=== PATIENT | male | born 1985 | race Caucasian/White ===

== ENCOUNTER 2023-04-18 12:40 | Emergency (ER) | payer OTHER ==
--- NOTE | 2023-04-18 12:51 | ED ---
General Adult HPI - General Chief complaint: Chest Pain Stated complaint: Chest Pain Time Seen by Provider: 04/18/23 12:43 Source: patient, EMS Mode of arrival: EMS Limitations: no limitations - History of Present Illness Initial comments: Dictation was produced using [employer] dictation software. please excuse any grammatical, word or spelling errors. Chief Complaint: 37-year-old male past medical history of methamphetamine abuse and psychiatric illness presents to the ER for chest pain History of Present Illness: Patient's 37-year-old male he is currently a resident at [facility] detox facility. He is detoxing from methamph etamines. Today he had episode where he had some dull pressure in his substernal chest. He states that he's had it before and when we would water. Today he had it and it didn't really go away. EMS was called. His symptoms resolved en route to the ER. He is given an aspirin. Patient asymptomatic bedside. He states that the pain did radiate to his right jaw. Did not quit on the extremity. Patient has no cardiac history. No associated nausea or diaphoresis. He does report a family history of cardiac disease. The ROS documented in this emergency department record has been reviewed and confirmed by me. Those systems with pertinent positive or negative responses have been documented in the HPI. All other systems are other negative and/or noncontributory. - Related Data Home Medications Medication Instructions Recorded Confirmed Acetaminophen Tab [Tylenol] 650 mg PO Q4H PRN 04/18/23 04/18/23 Albuterol Inhaler [Ventolin Hfa 1 - 2 puff INHALATION RT-Q4H PRN 04/18/23 04/18/23 Inhaler] Calcium Phos/D3/Magnesium/Zinc 1 tab PO TID PRN 04/18/23 04/18/23 [Pcdsjua-[id number]-Zcmb-Vitamin D3] Docusate [Colace] 100 mg PO BID PRN 04/18/23 04/18/23 Gabapentin 800 mg PO TID 04/18/23 04/18/23 Ibuprofen [Motrin Ib] 600 mg PO Q6H PRN 04/18/23 04/18/23 Methadone HCl [Methadone Intensol] 50 mg PO DAILY 04/18/23 04/18/23 Multivitamins, Thera [Multivitamin 1 tab PO DAILY 04/18/23 04/18/23 (formulary)] Nicotine 21Mg/24Hr Patch [Habitrol] 1 patch TRANSDERM DIRECTED 04/18/23 04/18/23 OLANZapine 5 mg PO HS 04/18/23 04/18/23 Tamsulosin [Flomax] 0.4 mg PO DAILY 04/18/23 04/18/23 Thiamine [Vitamin B-1] 100 mg PO DAILY 04/18/23 04/18/23 Venlafaxine HCl [Effexor] 225 mg PO DAILY 04/18/23 04/18/23 cloNIDine HCL 0.1 mg PO TID 04/18/23 04/18/23 Allergies Allergy/AdvReac Type Severity Reaction Status Date / Time No Known Allergies Allergy Verified 04/18/23 13:56 Review of Systems ROS Statement: Those systems with pertinent positive or pertinent negative responses have been documented in the HPI. ROS Other: All systems not noted in ROS Statement are negative. Past Medical History Past Medical History: Hypertension History of Any Multi-Drug Resistant Organisms: None Reported Past Surgical History: No Surgical Hx Reported Past Psychological History: Schizophrenia Smoking Status: Current every day smoker Past Alcohol Use History: None Reported Past Drug Use History: Marijuana, Methamphetamine General Exam - General Exam Comments Initial Comments: PHYSICAL EXAM: General Impression: Alert and oriented x3, not in acute distress HEENT: Normocephalic atraumatic, extra-ocular movements intact, pupils equal and reactive to light bilaterally, mucous membranes moist. Cardiovascular: Heart regular rate and rhythm Chest: Able to complete full sentences, no retractions, no tachypnea Abdomen: abdomen soft, non-tender, non-distended, no organomegaly Musculoskeletal: Pulses present and equal in all extremities, no peripheral rasta a Motor: no focal deficits noted Neurological: CN II-XII grossly intact, no focal motor or sensory deficits noted Skin: Intact with no visualized rashes Psych: Normal affect and mood Limitations: no limitations Course Vital Signs 04/18/23 12:44 Temperature 97.5 F L Pulse Rate 69 Respiratory 18 Rate Blood Pressure 105/63 O2 Sat by Pulse 97 Oximetry EKG Findings - EKG Comments: EKG Findings:: My EKG interpretation: Ventricular rate 63, sinus rhythm,. 171, QRS 96, QTC 393. No ME prolongation, no QTC prolongation, no ST or T-wave changes noted. Overall, this EKG is unremarkable Medical Decision Making - Medical Decision Making Was pt. sent in by a medical professional or institution (, AAKASH, PLATE CORRECTOR, urgent care, hospital, or long-term...) When possible be specific @ -No Did you speak to anyone other than the patient for history (EMS, parent, family, police, friend...)? What history was obtained from this source @ -No Did you review nursing and triage notes (agree or disagree)? Why? @ -I reviewed and agree with nursing and triage notes Were old charts reviewed (outside hosp., previous admission, EMS record, old EKG, old radiological studies, urgent care reports/EKG's, long-term records)? Report findings @ -No old charts were reviewed Differential Diagnosis (chest pain, altered mental status, abdominal pain women, abdominal pain men, vaginal bleeding, musculoskeletal, weakness, fever, dysp pacheco, syncope, headache, dizziness, GI bleed, back pain, seizure, CVA, palpatations, mental health)? @ -Differential Chest Pain: Stable Angina, Unstable Angina, STEMI, NSTEMI Aortic Dissection, Pneumothorax, Musculoskeletal, Esophageal Spasm GERD, Cholecystitis, Pancreatitis, Zoster, this is not meant to be an all-inclusive list. EKG interpreted by me (3pts min.). @ -See above X-rays interpreted by me (1pt min.). @ -Chest X-rays nonacute CT interpreted by me (1pt min.). @ -None done U/S interpreted by me (1pt. min.). @ -None done What testing was considered but not performed or refused? (CT, X-rays, U/S, labs)? Why? @ -None What meds were considered but not given or refused? Why? @ -None Did you discuss the management of the patient with other professionals (professionals i.e. , AAKASH, PLATE CORRECTOR, lab, RT, psych nurse, social media project manager, chemist inorganic, teacher, quality officer, top case assembler)? Give summary @ -No Was smoking cessation discussed for >3mins.? @ -No Was critical care preformed (if so, how long)? @ -No Were there social determinants of health that impacted care today? How? (Homelessness, low income, unemployed, alcoholism, drug addiction, transportation, low edu. Level, literacy, decrease access to med. care, [facility], rehab)? @ -No Was there de-escalation of care discussed even if they declined (Discuss DNR or withdrawal of care, Hospice)? DNR status @ -No What co-morbidities impacted this encounter? (DM, HTN, Smoking, COPD, CAD, Cancer, CVA, ARF, Chemo, Hep., AIDS, mental health diagnosis, sleep apnea, morbid obesity)? @ -None Was patient admitted / discharged? Hospital course, mention meds given and route, prescriptions, significant lab abnormalities, going to OR and other pertinent info. @ -37-year-old male with no significant comorbidities presents to the ER for atypical chest pain. Vital signs upon arrival are within acceptable limits. Patient does have some risk factors every he has a low heart score. Laboratory evaluation is unremarkable. EKG is negative. Troponin is negative. Chest x- rays nonacute. Patient reevaluated at bedside without any symptoms. Return precautions discussed. Patient discharged. Undiagnosed new problem with uncertain prognosis? @ -No Drug Therapy requiring intensive monitoring for toxicity (Heparin, Nitro, Insulin, Cardizem)? @ -No Were any procedures done? @ -No Diagnosis/symptom? Acute, or Chronic, or Acute on Chronic? Uncomplicated (without systemic symptoms) or Complicated (systemic symptoms)? @ -Chest pain Side effects of treatment? @ -No Exacerbation, Progression, or Severe Exacerbation? @ -No Poses a threat to life or bodily function? How? (Chest pain, [place], [place], pneumonia, PE, COPD, DKA, ARF, appy, cholecystitis, CVA, Diverticulitis, Homicidal, Suicidal, threat to staff... and all critical care pts) @ -No - Lab Data Result diagrams: 04/18/23 13:09 04/18/23 13:09 Lab Results 04/18/23 04/18/23 04/18/23 Range/Units 13:09 13:09 13:09 WBC 4.6 (3.8-10.6) k/uL RBC 4.44 (4.30-5.90) m/uL Hgb 13.0 (13.0-17.5) gm/dL Hct 38.7 L (39.0-53.0) % MCV 87.0 (80.0-100.0) fL MCH 29.3 (25.0-35.0) pg MCHC 33.7 (31.0-37.0) g/dL RDW 12.5 (11.5-15.5) % Plt Count 235 (150-450) k/uL MPV 7.7 Neutrophils % 41 % Lymphocytes % 46 % Monocytes % 7 % Eosinophils % 4 % Basophils % 1 % Neutrophils # 1.9 (1.3-7.7) k/uL Lymphocytes # 2.1 (1.0-4.8) k/uL Monocytes # 0.3 (0-1.0) k/uL Eosinophils # 0.2 (0-0.7) k/uL Basophils # 0.0 (0-0.2) k/uL PT 10.8 (10.0-12.5) sec INR 1.0 (<1.2) APTT 28.6 (22.0-30.0) sec Sodium 134 L (137-145) mmol/L Potassium 4.8 (3.5-5.1) mmol/L Chloride 100 (98-107) mmol/L Carbon Dioxide 26 (22-30) mmol/L Anion Gap 8 mmol/L BUN 20 (9-20) mg/dL Creatinine 0.79 (0.66-1.25) mg/dL Est GFR (CKD-EPI)AfAm >90 (>60 ml/min/1.73 sqM) Est GFR (CKD-EPI)NonAf >90 (>60 ml/min/1.73 sqM) Glucose 91 (74-99) mg/dL Calcium 8.7 (8.4-10.2) mg/dL Magnesium 2.2 (1.6-2.3) mg/dL Total Bilirubin 0.3 (0.2-1.3) mg/dL AST 30 (17-59) U/L ALT 34 (4-49) U/L Alkaline Phosphatase 109 (38-126) U/L Troponin I (0.000-0.034) ng/mL Total Protein 6.7 (6.3-8.2) g/dL Albumin 3.8 (3.5-5.0) g/dL 04/18/23 Range/Units 13:09 WBC (3.8-10.6) k/uL RBC (4.30-5.90) m/uL Hgb (13.0-17.5) gm/dL Hct (39.0-53.0) % MCV (80.0-100.0) fL MCH (25.0-35.0) pg MCHC (31.0-37.0) g/dL RDW (11.5-15.5) % Plt Count (150-450) k/uL MPV Neutrophils % % Lymphocytes % % Monocytes % % Eosinophils % % Basophils % % Neutrophils # (1.3-7.7) k/uL Lymphocytes # (1.0-4.8) k/uL Monocytes # (0-1.0) k/uL Eosinophils # (0-0.7) k/uL Basophils # (0-0.2) k/uL PT (10.0-12.5) sec INR (<1.2) APTT (22.0-30.0) sec Sodium (137-145) mmol/L Potassium (3.5-5.1) mmol/L Chloride (98-107) mmol/L Carbon Dioxide (22-30) mmol/L Anion Gap mmol/L BUN (9-20) mg/dL Creatinine (0.66-1.25) mg/dL Est GFR (CKD-EPI)AfAm (>60 ml/min/1.73 sqM) Est GFR (CKD-EPI)NonAf (>60 ml/min/1.73 sqM) Glucose (74-99) mg/dL Calcium (8.4-10.2) mg/dL Magnesium (1.6-2.3) mg/dL Total Bilirubin (0.2-1.3) mg/dL AST (17-59) U/L ALT (4-49) U/L Alkaline Phosphatase (38-126) U/L Troponin I <0.012 (0.000-0.034) ng/mL Total Protein (6.3-8.2) g/dL Albumin (3.5-5.0) g/dL Disposition Clinical Impression: Chest pain Disposition: HOME SELF-CARE Condition: Good Instructions (If sedation given, give patient instructions): Chest Pain (ED) Is patient prescribed a controlled substance at d/c from ED?: No Referrals: Nonstaff,Physician [Primary Care Provider] - 1-2 days Time of Disposition: 14:28
[2023-04-18 13:02] VITALS: RESP 18; TEMP 97.5
[2023-04-18 13:42] LABS: Basophils % (A) 1 %; Eosinophils # (A) 0.2 k/uL (0-0.7); Eosinophils % (A) 4 %; HCT 38.7 % (39.0-53.0); Lymphocytes # (A) 2.1 k/uL (1.0-4.8); Lymphocytes % (A) 46 %; MCH 29.3 pg (25.0-35.0); MCHC 33.7 g/dL (31.0-37.0); Mean Platelet Volume 7.7; Monocytes # (A) 0.3 k/uL (0-1.0); Monocytes % (A) 7 %; Neutrophils # (A) 1.9 k/uL (1.3-7.7); Neutrophils % (A) 41 %; Platelet Count 235 k/uL (150-450); RBC 4.44 m/uL (4.30-5.90); RDW 12.5 % (11.5-15.5); WBC 4.6 k/uL (3.8-10.6)
--- NOTE | 2023-04-18 13:44 | XR ---
EXAMINATION TYPE: XR chest 2V DATE OF EXAM: 04/18/2023 COMPARISON: None HISTORY: 37-year-old male with chest pain TECHNIQUE: PA and lateral views FINDINGS: Heart normal size. Aorta and pulmonary vasculature within normal limits. No consolidation or pleural effusion. IMPRESSION: No acute cardiopulmonary process.
[2023-04-18 13:56] LABS: ALT 34 U/L (4-49); AST 30 U/L (17-59); African American GFR (CKD) >90 (>60 ml/min/1.73 sqM); Albumin 3.8 g/dL (3.5-5.0); Alkaline Phosphatase 109 U/L (38-126); Anion Gap 8 mmol/L; Blood Urea Nitrogen 20 mg/dL (9-20); Calcium 8.7 mg/dL (8.4-10.2); Carbon Dioxide 26 mmol/L (22-30); Chloride 100 mmol/L (98-107); Glucose 91 mg/dL (74-99); Magnesium 2.2 mg/dL (1.6-2.3); Non-African American GFR(CKD) >90 (>60 ml/min/1.73 sqM); Potassium 4.8 mmol/L (3.5-5.1); Sodium 134 mmol/L (137-145); Total Bilirubin 0.3 mg/dL (0.2-1.3); Total Protein 6.7 g/dL (6.3-8.2)
[2023-04-18 14:07] LABS: Partial Thromboplastin Time 28.6 sec (22.0-30.0); Prothrombin Time 10.8 sec (10.0-12.5)
[2023-04-18 15:04] VITALS: BP 113/69; PULSE 81
== END 2023-04-18 15:00 | disposition home or self-care (01) ==
LOC: EC 12:40
DX: R07.9 Chest pain, unspecified (principal); I10 Essential (primary) hypertension; F12.90 Cannabis use, unspecified, uncomplicated; F17.200 Nicotine dependence, unspecified, uncomplicated; Z79.899 Other long term (current) drug therapy
CPT/HCPCS: 36415; 71046; 80053; 83735; 84484; 85025; 85610; 85730; 93005; 99285

== ENCOUNTER 2024-10-20 17:25 | Emergency (ER) | payer OTHER ==
--- NOTE | 2024-10-20 19:37 | ED ---
Chest Pain HPI - General Source: patient, RN notes reviewed Mode of arrival: ambulatory Limitations: no limitations <Kyle Chinchilla - Last Filed: 10/20/24 19:34> <Ayse Hernandez - Last Filed: 10/21/24 02:03> - General Chief Complaint: Chest Pain Stated Complaint: Chest pain,L leg pain Time Seen by Provider: 10/20/24 17:42 - History of Present Illness Initial Comments: Quick note: This is a 39-year-old male with history of hypertension and methamphetamine use presenting from [place] for chest pain and pain in the left lower extremity for the past several days. Patient describes chest pain as sharp and intermittent, located mostly in his left axillary region. Denies pain with inspiration, radiating pain, dyspnea, dizziness. Patient also endorses pain in his left leg extending from his hip to knee, described as aching that worsens while walking for the past 2 days. Denies recent trauma, lower extremity edema, color change, lower back pain. (Kyle Chinchilla) Patient is a 39-year-old gentleman, past medical history hypertension, methamphetamine abuse, cocaine abuse, fentanyl and Adderall abuse presenting today for left lower extremity pain and chest pain. Patient has been in [place] rehab facility for fentanyl and Adderall abuse since October 16. Last cocaine use was one month ago. He began noticing intermittent sharp left-sided chest pains,pinpoint, nonradiating. Patient is been taking Tylenol and ibuprofen for pain which does help his pain. States pain improves when he gets up and walks around, or drinks water. No history of CAD. No history of diabetes or hyperlipidemia. Also noted crampy left posterior leg pain over the last several days as well. Denies traumas, falls, swelling or back pain. Does intermittently radiate to the hip. Controlled with Tylenol and ibuprofen. No history of prior DVT PE or malignancy. Is a cigarette smoker. Denies hemoptysis shortness of breath fevers, chills, abdominal pain, nausea, vomiting, diaphoresis dizziness, lightheadedness, numbness or weakness. (Ayse Hernandez) - Related Data Home Medications Medication Instructions Recorded Confirmed Acetaminophen Tab [Tylenol] 650 mg PO Q4H PRN 04/18/23 04/18/23 Albuterol Inhaler [Ventolin Hfa 1 - 2 puff INHALATION RT-Q4H PRN 04/18/23 04/18/23 Inhaler] Calcium Phos/D3/Magnesium/Zinc 1 tab PO TID PRN 04/18/23 04/18/23 [Jstrnrs-Wyw-Bgsv-Vitamin D3] Docusate [Colace] 100 mg PO BID PRN 04/18/23 04/18/23 Gabapentin 800 mg PO TID 04/18/23 04/18/23 Ibuprofen [Motrin Ib] 600 mg PO Q6H PRN 04/18/23 04/18/23 Methadone HCl [Methadone Intensol] 50 mg PO DAILY 04/18/23 04/18/23 Multivitamins, Thera [Multivitamin 1 tab PO DAILY 04/18/23 04/18/23 (formulary)] Nicotine 21Mg/24Hr Patch [Habitrol] 1 patch TRANSDERM DIRECTED 04/18/23 04/18/23 OLANZapine 5 mg PO HS 04/18/23 04/18/23 Tamsulosin [Flomax] 0.4 mg PO DAILY 04/18/23 04/18/23 Thiamine [Vitamin B-1] 100 mg PO DAILY 04/18/23 04/18/23 Venlafaxine HCl [Effexor] 225 mg PO DAILY 04/18/23 04/18/23 cloNIDine HCL 0.1 mg PO TID 04/18/23 04/18/23 Allergies Allergy/AdvReac Type Severity Reaction Status Date / Time No Known Allergies Allergy Verified 10/20/24 17:31 Review of Systems ROS Other: All systems not noted in ROS Statement are negative. <Kyle Chinchilla - Last Filed: 10/20/24 19:34> ROS Other: All systems not noted in ROS Statement are negative. Constitutional: Denies: fever, chills, weakness Respiratory: Denies: cough, dyspnea, hemoptysis Cardiovascular: Reports: chest pain. Denies: dyspnea on exertion, syncope Gastrointestinal: Denies: abdominal pain, nausea, vomiting, diarrhea, melena, hematochezia Musculoskeletal: Reports: arthralgia, myalgia. Denies: back pain, joint swelling Skin: Denies: rash, change in color Neurological: Denies: weakness, numbness, paresthesias <Ayse Hernandez - Last Filed: 10/21/24 02:03> ROS Statement: Those systems with pertinent positive or pertinent negative responses have been documented in the HPI. EKG Findings - EKG Comments: EKG Findings:: Sinus rhythm, rate 63 bpm intervals in acceptable limits, normal axis, no significant ST elevations or depressions, no arrhythmia <Ayse Hernandez - Last Filed: 10/21/24 02:03> Past Medical History Past Medical History: Hypertension History of Any Multi-Drug Resistant Organisms: None Reported Past Surgical History: No Surgical Hx Reported Past Psychological History: Schizophrenia Smoking Status: Current every day smoker Past Alcohol Use History: None Reported Past Drug Use History: Marijuana, Methamphetamine <Kyle Chinchilla - Last Filed: 10/20/24 19:34> General Exam Limitations: no limitations <Kyle Chinchilla - Last Filed: 10/20/24 19:34> <Ayse Hernandez - Last Filed: 10/21/24 02:03> - General Exam Comments Initial Comments: Visual Physical Exam Vital signs reviewed General: Well-appearing, nontoxic, no acute distress. Head: Normocephalic, atraumatic Eyes: PERRLA, EOMI ENT: Airway patent Chest: Nonlabored breathing Skin: No visual rash, normal skin tone Neuro: Alert and oriented 3 Musculoskeletal: No gross abnormalities (AmorKyle) PE: CONSTITUTIONAL: [no apparent distress, well appearing] SKIN: [warm, dry, no jaundice, hives or petechiae] EYES:[ pupils are equally round, extraocular movements intact without nystagmus, clear conjunctiva, non-icteric sclera] HENT: [normocephalic, atraumatic, moist mucus membranes, oropharynx clear without exudates] NECK: , [Full range of motion, normal appearance] PULMONARY: [clear to auscultation without wheezes, rhonchi, or rales, normal excursion, no accessory muscle use and no stridor] CARDIOVASCULAR:[ regular rate, rhythm, normal S1 and S2. No appreciated murmurs, rubs or gallops. Strong radial pulses with intact distal perfusion. No lower extremity edema] GASTROINTESTINAL: [soft, active bowel sounds throughout, non-tender, non- distended, no palpable masses, no rebound or guarding. No hepatosplenomegaly] GENITOURINARY: MUSCULOSKELETAL: [Extremities have no gross deformity, no edema, redness, or swelling. No calf swelling ] NEUROLOGIC: [_a/o x 3, GCS 15, normal mentation and speech. Moves all extremities x 4 without motor or sensory deficit no midline spinal tenderness to palpation] PSYCHIATRIC:[ _normal mood and affect, thought process is clear and linear] (Ayse Hernandez) Course Vital Signs 10/20/24 10/20/24 10/20/24 17:29 20:54 21:03 Temperature 98.2 F Pulse Rate 67 64 68 Respiratory 18 18 16 Rate Blood Pressure 138/95 144/103 148/96 O2 Sat by Pulse 99 99 98 Oximetry 10/21/24 01:05 Temperature 98.7 F Pulse Rate 85 Respiratory 16 Rate Blood Pressure 155/97 O2 Sat by Pulse 100 Oximetry Chest Pain MDM <Kyle Chinchilla - Last Filed: 10/20/24 19:34> - Wells Criteria Clinical Symptoms of DVT: (0) No No Alternative Diagnosis: (3.0) Yes Immobilization of Surgery in Previous 4 Weeks: (0) No Previous DVT/PE: (0) No Hemoptysis: (0) No Malignancy: (0) No - YOSEF Score Age > 65: (0) No 3 or more CAD Risk Factors: (0) No Known CAD with more than 50% Stenosis: (0) No Elevated Cardiac Markers: (0) No ST Deviation Greater than 0.5mm: (0) No <Ayse Hernandez - Last Filed: 10/21/24 02:03> - MDM I completed the quick note portion of this chart signed JOSEPH Torres (Kyle Chinchilla) Was pt. sent in by a medical professional or institution (AAKASH Walsh, PROGRAM STRATEGIST, urgent care, hospital, or shelter...) When possible be specific @ -No Did you speak to anyone other than the patient for history (EMS, parent, family, police, friend...)? What history was obtained from this source @ -No Did you review nursing and triage notes (agree or disagree)? Why? @ -I reviewed nursing and triage notes Were old charts reviewed (outside hosp., previous admission, EMS record, old EKG, old radiological studies, urgent care reports/EKG's, shelter records)? Report findings @ -Medical records reviewed-Reviewed ED visit from 04/18/2023 patient had presented for chest pain at that time as well, he had presented from [place] while detoxing from methamphetamines. EKG from that visit showed sinus rhythm without ST or T wave changes. He was discharged home after a negative troponin and EKG as well as a nonacute chest x-ray D differential Chest Pain: Stable Angina, Unstable Angina, STEMI, NSTEMI Aortic Dissection, pericarditis, pleurisy, chostochondirits, Pneumothorax, Musculoskeletal, Esophageal Spasm GERD, Cholecystitis, Pancreatitis, Zoster, this is not meant to be an all- inclusive list. Differential Musculoskeletal Muscular strain, contusion, ligament sprain, fracture, arthritis, septic arthritis, bursitis, cellulitis, muscle spasm, nerve compression, DVT, arterial occlusion, herpes zoster, electrolyte abnormality, tumor.... This is not meant to be in all inclusive list EKG interpreted by me (3pts min.). @ -As above X-rays interpreted by me (1pt min.). Personally viewed chest x-ray x-rays of left lower extremity, I see no cardiomegaly, consolidations or pleural effusions, no evidence of fracture or dislocation CT interpreted by me (1pt min.). @ -None done U/S interpreted by me (1pt. min.). Ultrasound was reviewed and did not appear to show any evidence of vaso- occlusive DVT What testing was considered but not performed or refused? (CT, X-rays, U/S, labs)? Why? @ -None What meds were considered but not given or refused? Why? @ -None Did you discuss the management of the patient with other professionals (professionals i.e. , PA, PROGRAM STRATEGIST, lab, RT, psych nurse, social and human services assistant, sap specialist, teacher, parking enforcement officer, case management assistant)? Give summary @ -No Was smoking cessation discussed for >3mins.? @ -No Was critical care preformed (if so, how long)? @ -No Were there social determinants of health that impacted care today? How? (Homelessness, low income, unemployed, alcoholism, drug addiction, transportation, low edu. Level, literacy, decrease access to med. care, halfway, rehab)? @ -No Was there de-escalation of care discussed even if they declined (Discuss DNR or withdrawal of care, Hospice)? @ -No What co-morbidities impacted this encounter? (DM, HTN, Smoking, COPD, CAD, Cancer, CVA, ARF, Chemo, Hep., AIDS, mental health diagnosis, sleep apnea, morbid obesity)? @ -Polysubstance abuse, hypertension Was patient admitted / discharged? Hospital course, mention meds given and route, prescriptions, significant lab abnormalities, going to OR and other pertinent info. @ Discharged- 39-year-old gentleman presenting today for intermittent left-sided chest pain, nonexertional as well as atraumatic left lower extremity pain. Patient initially seen steve triage provider, labs ordered as well as plain films of the chest and affected extremity as well as ultrasound left lower extremity. On my assessment patient is asymptomatic of chest pain. Notes left lower e xtremity pain. Exam is overall benign, left lower extremity, atraumatic able to range full range of motion neurovascularly intact. Cardiopulmonary exam benign. EKG is reassuring. Initial troponin within normal limits 0.22. K 5.6, hemolyzed. Will obtain repeat. Labs reassuring discussed with patient administration of muscle relaxant, Toradol anticipate discharge due to low heart score of 2. Repeat potassium 4.1. Repeat troponin undetectable. Discussed with patient plan for discharge back to [place]. We discussed signs and symptoms to monitor closely for warranting return to the ER such as persistent chest pain, leg swelling, failure of pain to improve in the next 48 hours, redness and swelling of his leg, fever since already experiencing symptoms or any further concerns for his wellbeing he should return to the ER immediately. In my medical judgment there is currently no evidence of an immediate life- threatening or surgical condition. Discharge is therefore indicated at this time. Discharge treatment instructions, follow up instructions, and appropriate emergency department return precautions were discussed with the patient and/or medical decision maker. Patient and/or medical decision maker expressed understanding of and agreed with the treatment plan, follow up instructions, and emergency department return precaution. All patient's and/or medical decision maker's questions were answered. The patient was advised that a small risk still exists that a serious condition could develop and was therefore instructed to return to the ED for any changes in symptoms, persistent symptoms, inability to obtain proper follow-up or for any further concerns. Patient received verbal and written instructions for this condition. Undiagnosed new problem with uncertain prognosis? @ -No Drug Therapy requiring intensive monitoring for toxicity (Heparin, Nitro, Insulin, Cardizem)? @ -No Were any procedures done? @ -No Diagnosis/symptom? @Chest pain, left lower extremity pain, left hip osteoarthritis Acute, or Chronic, or Acute on Chronic? @Acute Uncomplicated (without systemic symptoms) or Complicated (systemic symptoms)? @Complicated Side effects of treatment? @ -No Exacerbation, Progression, or Severe Exacerbation? @ -No Poses a threat to life or bodily function? How? (Chest pain, [place], OR, pneumonia, PE, COPD, DKA, ARF, appy, cholecystitis, CVA, Diverticulitis, Homicidal, Suicidal, threat to staff... and all critical care pts) @ -No, not at time of discharge (Ayse Hernandez) Disposition <Kyle Chinchilla - Last Filed: 10/20/24 19:34> Is patient prescribed a controlled substance at d/c from ED?: No <Ayse Hernandez - Last Filed: 10/21/24 02:03> Clinical Impression: Left leg pain, Chest pain Disposition: HOME SELF-CARE Condition: Good Instructions (If sedation given, give patient instructions): Chest Pain (ED), Osteoarthritis (ED) Additional Instructions: Every disease is a spectrum and a small chance still exists that a serious condition could develop, for this reason, please monitor yourself closely for new, changing or worsening symptoms, symptoms that persist beyond 48 hours, redness or swelling of your affected extremity, constant chest pain or worsening of your chest pain, especially chest pain with onset of sweatiness, nausea, vomiting or shortness of breath, new shortness of breath, coughing up blood, difficulty in breathing fever, inability to tolerate/keep down fluids or your medications, inability to follow up with outpatient providers as instructed and should you experience these symptoms or should you have any further concerns for your wellbeing please return to the ED or call 911 immediately. Your pain can be treated with ibuprofen and acetaminophen. You can take up to 400-600 mg of ibuprofen (Advil, Motrin) 3 times daily (every 8 hours) but can also use lower doses if this relieves your pain. Some people prefer naproxen (Aleve, Naprosyn) which can be taken in doses of 500 mg up to twice a day. Do not take both of these medicines together, and do not combine either with ketorolac (Toradol), meloxicam (Mobic), or indomethacin (Tivorbex). Some people can develop stomach discomfort with higher doses of either ibuprofen or naproxen, if this develops decrease your dose or stop taking it. If you need to take this dose daily for more than a week, please schedule an appointment for re-evaluation with your PCP. Please take these medications with food. You can take up to 1000 mg of acetaminophen (Tylenol) every 6 hours. Be careful as this is included in some medicines like Nyquil, [place], Percocet, Vicodin, STANBACK, Goody's Powders, and Excedrin. You can also use lidocaine patches for topical pain. You can purchase 4% patches over the counter at most drug stores. These can be helpful for pain from your muscles or bones. PLEASE call your primary care physician as soon as possible to arrange / discuss plan for followup appointment. Appointment in the next 1-3 days is strongly encouraged if possible. PLEASE let us know here before you leave if there is anything further we can do to be of any assistance. Take care and feel Better! Referrals: Nonstaff,Physician [Primary Care Provider] - 1-2 days
[2024-10-20 20:16] LABS: Basophils # (A) 0.04 10*3/uL (0.00-0.10); Basophils % (A) 0.6 %; Eosinophils # (A) 0.12 10*3/uL (0.04-0.35); Eosinophils % (A) 1.9 %; HCT 43.8 % (39.6-50.0); HGB 15.0 g/dL (13.0-17.0); Lymphocytes # (A) 2.67 10*3/uL (0.90-5.00); Lymphocytes % (A) 42.2 %; MCH 30.0 pg (27.0-32.0); MCHC 34.2 g/dL (32.0-37.0); MCV 87.6 fL (80.0-97.0); Monocytes # (A) 0.57 10*3/uL (0.20-1.00); Monocytes % (A) 9.0 %; Neutrophils # (A) 2.92 10*3/uL (1.80-7.70); Neutrophils % (A) 46.1 %; Platelet Count 217 10*3/uL (140-440); RBC 5.00 10*6/uL (4.40-5.60); RDW 12.3 % (11.5-14.5); WBC 6.33 10*3/uL (4.50-10.00)
[2024-10-20 21:04] VITALS: RESP 16
--- NOTE | 2024-10-20 21:06 | XR ---
EXAMINATION TYPE: XR chest 2V DATE OF EXAM: 10/20/2024 8:52 PM COMPARISON: Chest radiographs from 04/18/2023 CLINICAL INDICATION: Male, 39 years old with history of Chest pain; [facility] TECHNIQUE: XR chest 2V Frontal and lateral views of the chest. FINDINGS: Lungs/Pleura: There is no evidence of pleural effusion, focal consolidation, or pneumothorax. Pulmonary vascularity: Unremarkable. Heart/mediastinum: Cardiomediastinal silhouette is unremarkable. Musculoskeletal: No acute osseous pathology. IMPRESSION: No acute cardiopulmonary disease/process. [facility], , 10/20/2024 9:04 PM
--- NOTE | 2024-10-20 21:07 | XR ---
EXAMINATION TYPE: XR Hip Complete LT DATE OF EXAM: 10/20/2024 8:53 PM COMPARISON: None CLINICAL INDICATION: Male, 39 years old with history of Atraumatic left hip and knee pain; PHH, pain TECHNIQUE: XR Hip Complete LT; Frontal and lateral views FINDINGS: No evidence for acute process, joint dislocation or significant soft tissue swelling. Osteo phyte formation of the superior acetabulum of the hip. There is mild joint space narrowing. IMPRESSION: 1. No evidence for acute process. 2. Mild hip osteoarthrosis. [facility], , 10/20/2024 9:05 PM
--- NOTE | 2024-10-20 21:09 | XR ---
EXAMINATION TYPE: XR knee complete LT DATE OF EXAM: 10/20/2024 8:53 PM COMPARISON: None CLINICAL INDICATION: Male, 39 years old with history of Atraumatic left hip and knee pain; PHH, pain TECHNIQUE: XR knee complete LT 3 views submitted. FINDINGS: No evidence of any acute osseous pathology or soft tissue swelling. Tricompartmental oste ophyte formation involving the femoral condyles, tibial plateau and patella. Mild joint space narrowi ng. IMPRESSION: 1. No acute osseous pathology. 2. Mild tricompartmental osteoarthritic changes. [facility], , 10/20/2024 9:07 PM
[2024-10-20 21:34] LABS: INR 1.0 (<1.2); Partial Thromboplastin Time 22.4 sec (22.0-30.0); Prothrombin Time 11.3 sec (10.0-12.5)
--- NOTE | 2024-10-20 22:12 | US ---
EXAMINATION TYPE: US venous doppler duplex LE LT DATE OF EXAM: 10/20/2024 9:53 PM COMPARISON: NONE CLINICAL INDICATION: Male, 39 years old with history of Sudden onset LLE pain; pain SIDE PERFORMED: left TECHNIQUE: The lower extremity deep venous system is examined utilizing real time linear array sonog [place] with graded compression, doppler sonography and color-flow sonography. VESSELS IMAGED: Common Femoral Vein Deep Femoral Vein Greater Saphenous Vein * Femoral Vein Popliteal Vein Small Saphenous Vein * Proximal Calf Veins (* superficial vessels) Left Leg: negative for dvt Grayscale, color doppler, spectral doppler imaging performed of the deep veins of the lower extremiti es. There is normal flow, compressibility, vascular waveforms. IMPRESSION: No evidence for deep vein thrombosis. [facility], , 10/20/2024 10:09 PM
[2024-10-20 22:24] LABS: ALT 23 U/L (4-49); African American GFR (CKD) >90 (>60 ml/min/1.73 sqM); Anion Gap 11 mmol/L; Blood Urea Nitrogen 20 mg/dL (9-20); Calcium 9.0 mg/dL (8.4-10.2); Carbon Dioxide 22 mmol/L (22-30); Chloride 102 mmol/L (98-107); Glucose 80 mg/dL (74-99); Non-African American GFR(CKD) >90 (>60 ml/min/1.73 sqM); Sodium 135 mmol/L (137-145)
[2024-10-20 22:30] LABS: AST 37 U/L (17-59); Albumin 4.7 g/dL (3.5-5.0); Magnesium 2.3 mg/dL (1.6-2.3); Potassium 5.6 mmol/L (3.5-5.1); Total Protein 7.8 g/dL (6.3-8.2)
[2024-10-20 22:31] LABS: Alkaline Phosphatase 91 U/L (38-126)
[2024-10-20] MEDS: KETOROLAC 15 MG/ML 1 ML VIAL IVP STA (22:49)
[2024-10-20] MEDS: SODIUM CHLORIDE 0.9% 1,000 ML IV ONE (22:50)
[2024-10-21] MEDS: QUEtiapine 100 MG TAB PO STA (01:02)
[2024-10-21 01:06] VITALS: BP 155/97; PULSE 85; TEMP 98.7
== END 2024-10-21 01:06 | disposition home or self-care (01) ==
LOC: EC 17:25
DX: R07.9 Chest pain, unspecified (principal); M79.605 Pain in left leg; F14.10 Cocaine abuse, uncomplicated; I10 Essential (primary) hypertension; F17.210 Nicotine dependence, cigarettes, uncomplicated
CPT/HCPCS: 36415; 93005; 85379; 80053; 83735; 84132; 84484; 85025; 85610; 85730; 73502; 73562; 71046; 93971; 99285; 96374; 96361; J1885